=== PATIENT | female | born 1975 | race Caucasian/White ===

== ENCOUNTER 2021-12-28 01:18 | Emergency (ER) | payer BC ==
[~2021-12-28] VITALS: Ht 154.9 cm; Wt 72.6 kg
[2021-12-28 01:30] VITALS: BP_SYST 133
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
--- NOTE | 2021-12-28 01:57 | NUR ---
Patient to ER bed 06 to gown for evaluation. Side rails up. Report given to LUIS PADILLA.
[2021-12-28] MEDS ORDERED: IBUPROFEN 600 MG TABLET PO ONE (02:30)
[2021-12-28] MEDS ORDERED: ACETAMINOPHEN 500 MG TABLET PO ONE (02:30)
[2021-12-28] MEDS ORDERED: LIDOCAINE/EPI 1% 1:100000 20 ML VIAL INJ ONE (02:30)
[2021-12-28] MEDS ORDERED: DIPHTH,PERTUSS(ACELL),TET VAC 0.5 ML VIAL (Tdap) I.M. ONE (02:30)
[2021-12-28] MEDS ORDERED: LIDOCAINE/EPI 2% 1:100000 20 ML VIAL INJ ONE ×2 (03:22→03:30)
--- NOTE | 2021-12-28 03:30 | NUR ---
PATIENT STATED SHE HAS MADE A POLICE REPORT WITH ROJAS TIANA . REPORT NUMBER IS [id number]
[2021-12-28] MEDS ORDERED: ONDANSETRON 4 MG ODT TAB PO ONE (04:15)
--- NOTE | 2021-12-28 05:25 | NUR ---
PT TO CT SCAN WITH TECH.
[2021-12-28] MEDS ORDERED: ACET-2634 PO (06:03)
[2021-12-28] MEDS ORDERED: ONDA-8 TL (06:03)
--- NOTE | 2021-12-28 06:50 | NUR ---
Patient given written and verbal discharge instructions and verbalizes understanding. ER MD CAMPOS discussed with patient the results and treatment provided. Patient in stable condition. ID arm band removed. Rx of ZOFRAN AND TYLENOL given. Patient educated on pain management and to follow up with PMD. Pain Scale 0/10. Opportunity for questions provided and answered. Medication side effect fact sheet provided.
[2021-12-28 06:59] VITALS: BP_SYST 130
== END 2021-12-28 06:59 | disposition home or self-care (01) ==
LOC: SED 01:18
DX: S01.81XA Laceration without foreign body of other part of head, initial encounter (principal); M25.532 Pain in left wrist; Z79.899 Other long term (current) drug therapy; Y04.0XXA Assault by unarmed brawl or fight, initial encounter; Y93.89 Activity, other specified; Y92.89 Other specified places as the place of occurrence of the external cause; Y99.8 Other external cause status
CPT/HCPCS: 99284; 70450; 73110; 73130; 76376; 90715; 90471; 12013; Q0162